=== PATIENT | female | born 2000 | race Caucasian/White ===

== ENCOUNTER 2021-08-03 19:13 | Inpatient (IN) ==
[2021-08-03 19:56] LABS: Basophils # 0.1 K/mcL (0.0-0.2); Basophils % 0.5 %; Eosinophils # 0.1 K/mcL (0.0-0.6); Eosinophils % 0.8 %; Hematocrit 46.1 % (35.3-44.9); Hemoglobin 15.7 g/dL (11.5-15.4); Immature Granulocytes % 0.3 % (0-4); Lymphocytes # 2.6 K/mcL (0.6-4.6); Lymphocytes % 21.8 %; Mean Corpuscular HGB Conc 34.1 g/dL (31.6-35.5); Mean Corpuscular Hemoglobin 30.3 pg (28.0-33.3); Mean Corpuscular Volume 88.8 fL (83.0-100.0); Mean Platelet Volume 10.9 fL (9.4-12.4); Monocytes # 0.6 K/mcL (0.0-1.3); Monocytes % 4.8 %; Neutrophils # 8.5 K/mcL (1.6-8.9); Platelet Count 252 K/mcL (140-400); Red Blood Count 5.19 M/mcL (3.82-4.97); Red Cell Distribution Width 11.4 % (11.5-14.5); Segmented Neutrophils % 71.8 %; White Blood Count 11.9 K/mcL (4.3-11.1)
[2021-08-03 20:15] LABS: Acetaminophen < 10 mcg/mL (10-20); BUN/Creatinine Ratio 15 (6-26); Blood Urea Nitrogen 12 mg/dL (6-20); Calcium 10.3 mg/dL (8.6-10.3); Carbon Dioxide 24 mEq/L (23-29); Chloride 104 mEq/L (98-107); Ethanol < 10 mg/dL (Less than 10); Glucose 99 mg/dL (70-105); Osmolality,Calculated 286 (280-300); Potassium 3.3 mEq/L (3.5-5.1); Salicylate < 2.5 mg/dL (15.0-30.0); Sodium 138 mEq/L (136-145); eGFR For African Americans > 60 (> 60); eGFR For Non-African Americans > 60 (> 60)
[2021-08-03 20:22] LABS: Bilirubin,Urine Negative (Negative); Blood,Urine Trace (Negative); Clarity,Urine Turbid (Clear); Color,Urine Light-Yellow (Yellow); Glucose,Urine (UA) Normal (Normal); Ketones,Urine 10 mg/dL (Negative); Leukocyte Esterase,Urine Large (Negative); Mucus,Urine Few per lpf (None-Few); Nitrite,Urine Negative (Negative); PH,Urine 5.5 pH Units (5.0-8.0); Protein,Urine Trace mg/dL (Neg-Trace); RBC,Urine 15-30 per hpf (0-3); Specific Gravity,Urine 1.019 (1.010-1.025); Squamous Epithelial Cell,Urine Many per hpf (None-Few); Urobilinogen,Urine Normal (Normal); WBC,Urine TNTC per hpf (0-3)
[2021-08-03 20:32] LABS: Amphetamine Screen,Urine Negative ng/mL (Cutoff=1000); Barbiturate Screen,Urine Negative ng/mL (Cutoff=200); Benzodiazepines Screen,Urine Negative ng/mL (Cutoff=300); Cannabinoid Screen,Urine Positive ng/mL (Cutoff = 50); Cocaine Screen,Urine Negative ng/mL (Cutoff= 300); Opiate Screen,Urine Negative ng/mL (Cutoff=300); Phencyclidine Screen,Urine Negative ng/mL (Cutoff=25)
[2021-08-03 22:17] LABS: Influenza A PCR Negative (Negative); Influenza B PCR Negative (Negative); Resp. Syncytial Virus PCR Negative (Negative)
[2021-08-03 22:18] LABS: SARS-CoV-2 by PCR (In House) Negative (Negative)
[2021-08-03] MEDS ORDERED: hydrOXYzine pamoate 25 MG CAPSULE PO PRN (23:43)
[2021-08-03] MEDS ORDERED: Haloperidol Lactate 5 MG/ML VIAL IM PRN (23:43)
[2021-08-03] MEDS ORDERED: *HR* LORazepam 2 MG/ML VIAL IM PRN (23:43)
[2021-08-03] MEDS ORDERED: *HR* LORazepam 1 MG TABLET PO PRN (23:43)
[2021-08-03] MEDS ORDERED: haloperidoL 5 MG TABLET PO PRN (23:43)
[2021-08-03] MEDS ORDERED: Ibuprofen 400 MG TABLET PO PRN (23:43)
[2021-08-04] MEDS: traZODone 50 MG TABLET PO PRN ×2 (01:31→21:20)
[2021-08-04] MEDS ORDERED: Mag Hydrox/Al Hydrox/Simeth 30 ML UDC PO PRN (08:01)
[2021-08-04] MEDS ORDERED: MOM Conc 10 ML UD.LIQ PO PRN (08:01)
[2021-08-04] MEDS: Nicotine 2 MG GUM BC PRN ×2 (13:04→21:20)
[2021-08-04] MEDS: Acetaminophen 325 MG TABLET PO PRN (17:40)
[2021-08-04 21:51] VITALS: O2SAT 98
[2021-08-05] MEDS: Nicotine 2 MG GUM BC PRN ×3 (09:10→16:08)
[2021-08-05] MEDS: Acetaminophen 325 MG TABLET PO PRN (09:54)
[2021-08-05 10:21] VITALS: BP 129/83; PULSE 102; TEMP 97.4
[2021-08-05] MEDS ORDERED: Moderna Covid-19 Vaccine 100MCG/0.5mL IM ONE (12:11)
== END 2021-08-05 16:30 | disposition home or self-care (01) | DRG 751 ==
LOC: EMEROOARM 19:13 → 1ANU 23:48
PROVIDERS: ADMIT Psychiatry & Neurology Psychiatry; ATTEND Psychiatry & Neurology Psychiatry